=== PATIENT | male | born 2005 | race Caucasian/White ===

== ENCOUNTER 2025-02-23 00:41 | Emergency (ER) | payer OTHER, SELFPAY ==
[2025-02-23 00:48] VITALS: BP 128/94; PULSE 102; TEMP 36.8; O2SAT 97; BMI 36.5
--- NOTE | 2025-02-23 01:08 | PC.NURSE ---
Abrasion to right palm, small amount of bleeding to area, right hand soaked in chlorhexidine.
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
[2025-02-23] MEDS: CEPHALEXIN 500 MG CAPSULE PO (01:31)
== END 2025-02-23 01:45 | disposition home or self-care (01) ==
PROVIDERS: Emergency Provider Emergency Medicine; PCP Family Medicine
DX: S60.511A Abrasion of right hand, initial encounter (principal); S50.312A Abrasion of left elbow, initial encounter; S80.211A Abrasion, right knee, initial encounter; V28.49XA Other motorcycle driver injured in noncollision transport accident in traffic accident, initial encounter
CPT/HCPCS: 99283